=== PATIENT | male | born 1955 | race Caucasian/White ===

== ENCOUNTER → 2018-04-25 08:00 | Outpatient (CLI) | payer OTHER, MEDICAID, SELFPAY ==
--- NOTE | 2018-04-25 08:01 | DI.US.S_ITS ---
PROCEDURE: US ABDOMEN COMPLETE INDICATIONS: right lower quadrant abdominal pain TECHNIQUE: Real-time scanning was performed of the abdominal and retroperitoneal organs, with image documentation. COMPARISON: None. FINDINGS: Liver: Liver is normal in size and homogeneous in echotexture. Gallbladder: Gallbladder is clear with normal wall thickness. Biliary ducts: Intrahepatic bile ducts are non-dilated. Extrahepatic bile duct caliber measures 5 mm. Normal is 6-7 mm or less in diameter, or 10 mm or less post-cholecystectomy. Pancreas: Pancreas is obscured by bowel gas Spleen: Spleen is normal in size and homogeneous in echotexture. Kidneys: Kidneys are normal in size and echotexture. Right kidney measures 11.9 cm long; left kidney measures 12.3 cm long. No hydronephrosis or nephrolithiasis. No solid masses. Aorta: Visualized aorta is normal in caliber at less than 3 cm. Iliacs: Proximal common iliac arteries are normal in caliber at less than 2.5 cm. IVC: Intrahepatic inferior vena cava is patent. Miscellaneous: No free abdominal fluid. Imaging over the lower quadrants show no sonographic abnormality. IMPRESSION: 1. Pancreas is obscured by bowel gas and cannot be evaluated. 2. Otherwise normal abdominal ultrasound, no etiology of right lower quadrant pain seen. Possibility of appendicitis is not excluded by this exam. Dictated by: Kevin Hair M.D. on 04/25/2018 at 10:32 Approved by: Kevin Hair M.D. on 04/25/2018 at 10:34
== END ==
PROVIDERS: Family Provider Family Medicine; PCP Family Medicine; Visit Provider Family Medicine
DX: R10.31 Right lower quadrant pain (principal)
CPT/HCPCS: 76700

== ENCOUNTER 2018-06-06 13:16 | Day surgery (SDC) | payer OTHER, MEDICAID, SELFPAY ==
--- NOTE | 2018-06-06 | PATH_ITS ---
[facility] Accession Number: [id number] . 01 Material submitted: . PART A: COLON POLYPS AT 60CM PART B: SIGMOID POLYP AT 25CM . 02 Diagnosis: A. Colon Polyp at 60 cm: Colonic mucosa with no diagnostic abnormality, consistent with polypoid redundancy. Negative for serrated lesion, dysplasia or malignancy. Additional step sections examined. . B. Sigmoid Colon Polyp at 25 cm: Granulation tissue, consistent with inflammatory polyp. Negative for dysplasia or malignancy. MRV/06/11/2018 . 02 Electronically signed: . Reji Mobley MD, PhD, Pathologist NPI- [id number] . 01 Gross description: . Part A: COLON POLYPS AT 60CM: Received in formalin is 1 fragment(s) of wells, soft tissue measuring 0.4 x 0.2 x 0.2 cm submitted entirely in 1 cassette(s) Part B: SIGMOID POLYP AT 25CM: Received in formalin are multiple fragment(s) of wells, soft tissue measuring 0.7 x 0.5 x 0.2 cm in aggregate submitted entirely in 1 cassette(s) /CKI /CKI . 02 Pathologist provided ICD-10: K63.5, K51.40 . 02 CPT . 535759, 278288 Specimen Comment: A duplicate report has been generated due to demographic updates. Performed at: 01 [facility] [address] [facility], [place], [place] [id number] MD Federico Zapien MD Phone: [phone] Performed at: 02 [facility] [address] [place], [place] [id number] MD Kenny Corona MD Phone: [phone]
[2018-06-06 13:40] VITALS: BMI 23.6
[2018-06-06 13:48] VITALS: BP 144/87; PULSE 71; RESP 16; TEMP 36.8; O2SAT 99
[2018-06-06] MEDS: SODIUM CHLORIDE 0.9% 1,000 ML 21 ML IV (13:53)
--- NOTE | 2018-06-06 14:21 | PM.HP.1 ---
History of Present Illness Date Patient Seen: 06/06/18 Time Patient Seen: 14:22 Chief complaint: colonoscopy 47902 Narrative: 62-year-old male who presents for colorectal screening. It has been 11 years since his last colonoscopy. On further history today denies any recent gastrointestinal symptoms. No nausea, vomiting, loss of appetite, unexplained weight loss, recent abdominal pain, change in bowel habits, diarrhea, constipation, melena, hematochezia, or bright red blood per rectum. Patient History Medical History No significant past medical history (Acute) No significant past surgical history (Acute) Surgical History History of colonoscopy (Acute) Family & Social History Family History: Reviewed 06/06/18 by Isaac Mejia MD Social History: household members significant other lives independently Yes Tobacco & Substance use: Smoking Status Never smoker alcohol intake current Meds Home Medications Medication Instructions Recorded Confirmed Type [BACK BRACE] #1 ea 04/03/18 Rx acetaminophen [Tylenol] 325 mg PO Q4-6H PRN 06/06/18 06/06/18 History Allergies Allergy/AdvReac Type Severity Reaction Status Date / Time No Known Drug Allergies Allergy Verified 06/06/18 13:37 Review of Systems Review of Systems All systems reviewed & are unremarkable except as noted in HPI and below Exam Vital Signs (past 8 hours): - 06/06/18 13:48 Temperature 98.2 F Pulse Rate 71 Respiratory Rate 16 Blood Pressure 144/87 H Pulse Oximetry 99 Oxygen Delivery Method Room Air Narrative Exam Narrative: Well-nourished well-developed male in no acute distress. Alert oriented x3 Sclera nonicteric Regular rate and rhythm. Abdomen soft, nondistended, nontender Extremities show no clubbing, cyanosis, or edema Objective Labs Labs: No recent studies for review Assessment & Plan Plan: Assessment/Plan Narrative: 62-year-old male requiring colorectal screening by both age criteria and since it has been 11 years from his prior examination. Colonoscopy is currently recommended. Technical details of the procedure were discussed. Risks, benefits, alternatives were explained. Risks including but not limited to sedation, aspiration, bleeding, pain, missed lesion, incomplete examination, need for further radiographic studies, colonic perforation, need for major abdominal surgery, and all attendant risks of major surgery were explained in detail. All questions were answered to his satisfaction, and he voiced understanding. Consent was placed on the chart. We will proceed as above.
--- NOTE | 2018-06-06 14:27 | P.HP_ITS ---
History of Present Illness Date Patient Seen: 06/06/18 Time Patient Seen: 14:22 Chief complaint: colonoscopy 31199 Narrative: 62-year-old male who presents for colorectal screening. It has been 11 years since his last colonoscopy. On further history today denies any recent gastrointestinal symptoms. No nausea, vomiting, loss of appetite, unexplained weight loss, recent abdominal pain, change in bowel habits, diarrhea , constipation, melena, hematochezia, or bright red blood per rectum. Patient History Medical History No significant past medical history (Acute) No significant past surgical history (Acute) Surgical History History of colonoscopy (Acute) Family & Social History Family History: Reviewed 06/06/18 by Isaac Mejia MD Social History: household members significant other lives independently Yes Tobacco & Substance use: Smoking Status Never smoker alcohol intake current Meds Home Medications Medication Instructions Recorded Confirmed Type [BACK BRACE] #1 ea 04/03/18 Rx acetaminophen [Tylenol] 325 mg PO Q4-6H PRN 06/06/18 06/06/18 History Allergies Allergy/AdvReac Type Severity Reaction Status Date / Time No Known Drug Allergies Allergy Verified 06/06/18 13:37 Review of Systems Review of Systems All systems reviewed & are unremarkable except as noted in HPI and below Exam Vital Signs (past 8 hours): - 06/06/18 13:48 Temperature 98.2 F Pulse Rate 71 Respiratory Rate 16 Blood Pressure 144/87 H Pulse Oximetry 99 Oxygen Delivery Method Room Air Narrative Exam Narrative: Well-nourished well-developed male in no acute distress. Alert oriented x3 Sclera nonicteric Regular rate and rhythm. Abdomen soft, nondistended, nontender Extremities show no clubbing, cyanosis, or edema Objective Labs Labs: No recent studies for review Assessment & Plan Plan: Assessment/Plan Narrative: 62-year-old male requiring colorectal screening by both age criteria and since it has been 11 years from his prior examination. Colonoscopy is currently recommended. Technical details of the procedure were discussed. Risks, benefits, alternatives were explained. Risks including but not limited to sedation, aspiration, bleeding, pain, missed lesion, incomplete examination, need for further radiographic studies, colonic perforation, need for major abdominal surgery, and all attendant risks of major surgery were explained in detail. All questions were answered to his satisfaction, and he voiced understanding. Consent was placed on the chart. We will proceed as above.
--- NOTE | 2018-06-06 14:27 | PM.PREOP ---
Pre-operative Note Interval Note Pre-op Check: Yes History & Physical Reviewed by Physician, Yes Exam Performed and Yes History & Physical exam performed today by Physician Changes: No H&P completed within 30 days and has changed as indicated here:: 62-year-old male seen and examined today. He requires colorectal screening. Colonoscopy is recommended. History physical examination documented and placed on the chart today. Proceed as above. ASA Class (for procedural sedation): I
[2018-06-06] MEDS: MIDAZOLAM 5 MG/5 ML VIAL IV (14:52)
[2018-06-06] MEDS: fentaNYL 250 MCG/5 ML INJ IV (14:53)
--- NOTE | 2018-06-06 14:56 | PM.OP.ENDO ---
Operative Date/Time/Diagnoses Date of procedure: 06/06/18 Time of procedure: 14:56 Pre-op diagnosis: Colorectal screening Post-op diagnosis: other (Diverticulosis and colon polyps) Procedure & Clinicians Study performed: 1. Sedation per surgeon 2. Colonoscopy with cold forceps polypectomies Same procedure as scheduled: Yes Indications: 62-year-old male who presented for colorectal screening. It has been 11 years since his last endoscopy. Colonoscopy is currently recommended. Surgeon: Isaac Mejia Procedure Notes SCOAP/Timeout: Yes Procedure in detail: After obtaining informed consent, the patient was brought to the GI suite and placed in the left lateral decubitus position on the examination table. After placement of appropriate monitors, the patient was given incremental doses of Versed and Fentanyl until an appropriate level of sedation was achieved. A time out was held per SCOAP protocol. A digital rectal examination was performed and did not reveal any masses or obstructing lesions. The colonoscope was gently passed into the patient's anus and the entire colon navigated to the level of the cecum with minimal difficulty. Terminal ileum was intubated and was noted to be grossly normal. Once in the cecum, the scope was withdrawn being sure to go before and beyond all mucosal folds and prominences and get an excellent examination. The findings are noted above. At the level of the rectal vault, the scope was retroflexed and the internal anal canal was examined. The scope was straightened and air aspirated from the colon. The instrument was removed from the patient's body and the procedure was concluded. The patient was allowed to awaken from sedation without difficulty and taken to the post-anesthesia care unit in good condition. Scope withdrawal time: 12:54 min Sedation minutes: 26 Findings: diverticulosis and polyp Specimen(s): other (1. Transverse colon polyp at 60 cm 2. Sigmoid colon polyp at 25 cm) Complications: none Recommendations: Colonscopy in 5 years, High fiber diet and Will call with biopsy results Plan for aftercare: 1. Discharge to home Follow up: as needed Disposition: PACU
[2018-06-06 15:00] VITALS: BP 141/85; PULSE 88; RESP 12; TEMP 36.6; O2SAT 96
== END 2018-06-06 15:20 | disposition home or self-care (01) ==
PROVIDERS: PCP Family Medicine; Visit Provider Surgery
PROC: 0DJD8ZZ Inspection of Lower Intestinal Tract, Via Natural or Artificial Opening Endoscopic (ICD-10-PCS; CPT 45378; principal; 2018-06-06 15:00)
DX: Z12.11 Encounter for screening for malignant neoplasm of colon (principal); K57.30 Diverticulosis of large intestine without perforation or abscess without bleeding; K63.5 Polyp of colon; K51.40 Inflammatory polyps of colon without complications
CPT/HCPCS: 45380; 88305; 99152; 99153; J2250; J3010

== ENCOUNTER 2019-02-09 15:01 | Emergency (ER) | payer MEDICARE, OTHER, SELFPAY ==
[2019-02-09 15:08] VITALS: BP 169/94; PULSE 77; RESP 16; TEMP 36.9; O2SAT 96; BMI 24.3
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
[2019-02-09 15:18] VITALS: PULSE 74
--- NOTE | 2019-02-09 15:22 | DI.RAD.S_ITS ---
PROCEDURE: XR ANKLE LT MIN 3V INDICATIONS: pain TECHNIQUE: 3 views of the ankle were acquired. COMPARISON: None. FINDINGS: Bones: No fractures or dislocations. Ankle mortise is normally aligned. No suspicious bony lesions. Incidental note is made of an accessory ossicle, an os trigonum. A plantar calcaneal spur is seen. Mild degenerative changes are seen. The talar dome demonstrates no paul abnormality. Soft tissues: No tibiotalar joint effusion. Achilles tendon appears normal. IMPRESSION: Normal plain film study for age. Dictated by: Marcial Virgen M.D. on 02/09/2019 at 14:46 Approved by: Marcial Virgen M.D. on 02/09/2019 at 14:47
--- NOTE | 2019-02-09 15:22 | DI.US.S_ITS ---
PROCEDURE: US PERIPH VENOUS LOW EXTREM LT INDICATIONS: PAIN TECHNIQUE: Real-time imaging, as well as color and pulse Doppler interrogation, were performed of the lower extremity deep veins from the inguinal ligament to the popliteal fossa. COMPARISON: None. FINDINGS: The common femoral, femoral and popliteal veins are normally compressible, and free of intraluminal thrombus. Color and pulse Doppler demonstrate normal phasic intraluminal flow. There is normal augmentation response to distal compression maneuver. IMPRESSION: Negative for deep venous thrombosis. Dictated by: Marcial Virgen M.D. on 02/09/2019 at 15:18 Approved by: Marcial Virgen M.D. on 02/09/2019 at 15:19
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
[2019-02-09 16:09] VITALS: BP 160/90; PULSE 84; RESP 18; O2SAT 96
== END 2019-02-09 16:47 | disposition home or self-care (01) ==
PROVIDERS: Emergency Provider Internal Medicine; PCP Family Medicine
DX: M79.605 Pain in left leg (principal)
CPT/HCPCS: 73610; 93971; 99282; 99283

== ENCOUNTER → 2019-02-18 17:46 | Outpatient (CLI) | payer MEDICARE, OTHER, SELFPAY ==
--- NOTE | 2019-02-18 17:52 | DI.MRI.S_ITS ---
PROCEDURE: MR HIP LT WO CON INDICATIONS: R/O any foreign body in area causing pain, vs.osteoarthritis TECHNIQUE: Noncontrast coronal T1 spin echo and STIR through the bony pelvis. Coronal and axial T2 fast spin echo with fat saturation, sagittal T1 spin echo, and oblique axial T2 fast spin echo with fat saturation through the hip. COMPARISON: None. FINDINGS: Image quality: Excellent. Bones and joints: Symmetric appearing bilateral hip joint osteoarthritic changes are seen with superior joint space narrowing, and subchondral sclerosis. No fracture or dislocation. No intraosseous lesions or fractures. No avascular necrosis of the femoral heads. The visualized lower lumbar spine appears normally aligned. Tendons and ligaments: The gluteus medius and minimus tendons appear intact, without associated muscle atrophy. The nearby proximal iliotibial band also appears intact. The iliopsoas tendon appears intact, without adjacent bursal fluid collections or evidence for impingement syndrome. The origin of the hamstring tendon is intact at the ischial tuberosity, as well as the associated sacrotuberous ligament. The straight and reflected heads of the rectus femoris muscle origin appear intact, as well as the conjoint tendon. The ligamentum teres appears intact where visualized. Labrum and cartilage: Any absence of intra-articular contrast, there is suggestion of superior left hip labral tear. Cartilage surface of the femoral head appears of normal thickness. The alpha angle of the femur is within normal limits at less than 55 degrees. Soft tissues: Visualized muscles demonstrate normal bulk and internal signal. Quadratus femoris muscle demonstrates no internal edema to suggest ischiofemoral impingement. The proximal sciatic neurovascular bundle appears normal adjacent to the hamstring tendons. No free pelvic fluid. Bladder wall thickness is normal. Genitourinary structures and bowel loops appear normal where visualized. IMPRESSION: 1. No fracture or dislocation. No evidence of avascular necrosis. Mild symmetric appearing bilateral hip joint osteophytic changes. 2. Finding is concerning for focal superior left hip labral tear. 3. No gross foreign body is seen. No gross muscle or tendon signal abnormality. Dictated by: Silvano Rascon M.D. on 02/19/2019 at 8:56 Approved by: Silvano Rascon M.D. on 02/19/2019 at 8:59
== END ==
PROVIDERS: Family Provider Family Medicine; PCP Family Medicine; Visit Provider Nurse Practitioner
DX: M79.605 Pain in left leg (principal); M16.0 Bilateral primary osteoarthritis of hip; M25.551 Pain in right hip; G89.29 Other chronic pain
CPT/HCPCS: 73721

== ENCOUNTER → 2021-01-06 08:34 | Outpatient (CLI) | payer MEDICARE, OTHER, SELFPAY ==
[2021-01-06] MEDS: COVID-19 VACC #1, MRNA(MOD) 100 MCG/0.5 ML VIAL IM (08:45)
== END ==
PROVIDERS: Family Provider Family Medicine; PCP Family Medicine; Visit Provider Internal Medicine
DX: Z23 Encounter for immunization (principal)
CPT/HCPCS: 0011A; 91301

== ENCOUNTER → 2021-02-11 08:37 | Outpatient (CLI) | payer MEDICARE, SELFPAY ==
[2021-02-11] MEDS: COVID-19 VACC #2, MRNA(MOD) 100 MCG/0.5 ML VIAL IM (08:42)
== END ==
PROVIDERS: Family Provider Family Medicine; PCP Family Medicine; Visit Provider Internal Medicine
DX: Z23 Encounter for immunization (principal)
CPT/HCPCS: 0012A; 91301

== ENCOUNTER → 2021-03-12 10:02 | Outpatient (CLI) | payer MEDICARE, OTHER, SELFPAY ==
--- NOTE | 2021-03-12 10:04 | DI.MRI.S_ITS ---
PROCEDURE: MR LUMBAR SPINE WO CON INDICATIONS: leg pain,foot pain, radiculopathy TECHNIQUE: Noncontrast sagittal T1 spin echo and T2 fast echo, sagittal STIR, axial T1 and T2 fast spin echo through the lumbar spine. In cases with scoliosis, additional coronal T2 fast spin echo may be performed. COMPARISON: None. FINDINGS: Image quality: Degraded by patient motion artifact. Alignment and Curvature: There is trace L2-L3 and L3-L4 retrolisthesis. Bone Marrow: Marrow is of normal overall signal. No acute vertebral body compression fractures. Spinal Cord: Conus medullaris terminates at the L1 level. Visualized cord demonstrates normal signal and size. Paraspinous Soft Tissues: No paravertebral masses. T12-L1: Normal appearance. L1-L2: Normal appearance. L2-L3: Loss of disc signal and slight loss of disc height. Mild to moderate diffuse disc bulge. Mild narrowing of the central canal. Mild to moderate right and moderate left neural foraminal narrowing. Small left foraminal disc protrusion abuts and slightly compresses the exiting left L2 nerve root. Fissure noted in the posterior annulus. L3-L4: Loss of disc signal. Mild, diffuse disc bulge. Small right central disc protrusion. Mild narrowing of the central canal. Mild to moderate bilateral neural foraminal narrowing. No neural compression. L4-L5: Loss of disc signal. Mild, diffuse disc bulge. Mild bilateral facet hypertrophy. Mild narrowing of the central canal. Mild to moderate bilateral neural foraminal narrowing. No neural compression. L5-S1: Loss of disc signal. Mild, diffuse disc bulge. Mild bilateral facet hypertrophy. No central stenosis. Mild bilateral neural foraminal narrowing. No neural compression. Fissure noted in the posterior annulus. IMPRESSION: 1. Multilevel degenerative disease. 2. Multilevel facet arthropathy. 3. No severe central canal narrowing. 4. No severe neural foraminal narrowing. 5. Small L2-L3 left foraminal disc protrusion which abuts and slightly compresses the exiting left L2 nerve root. Please correlate with clinical data. 6. L2-L3 and L5-S1 disc annulus fissures. Dictated by: Kaitlin Mims MD, PhD on 03/14/2021 at 10:52 Approved by: Kaitlin Mims MD, PhD on 03/14/2021 at 10:56
== END ==
PROVIDERS: Family Provider Family Medicine; PCP Family Medicine; Referring Provider Family Medicine; Visit Provider Family Medicine
DX: M51.16 Intervertebral disc disorders with radiculopathy, lumbar region (principal); M51.17 Intervertebral disc disorders with radiculopathy, lumbosacral region; M47.26 Other spondylosis with radiculopathy, lumbar region; M47.27 Other spondylosis with radiculopathy, lumbosacral region; M25.551 Pain in right hip; M54.5 Low back pain; M79.606 Pain in leg, unspecified; M79.673 Pain in unspecified foot; G89.29 Other chronic pain
CPT/HCPCS: 72148

== ENCOUNTER 2023-02-26 12:16 | Emergency (ER) | payer MEDICARE, OTHER, SELFPAY ==
[2023-02-26] VITALS (8 sets, daily range): BP systolic 145–219; BP diastolic 82–108; PULSE 61–80; RESP 10–30; TEMP 36.9; O2SAT 95–99; BMI 25.5
--- NOTE | 2023-02-26 12:23 | DI.RAD.S_ITS ---
PROCEDURE: XR CHEST 1V INDICATIONS: chest pain TECHNIQUE: One view of the chest was acquired. COMPARISON: None. FINDINGS: Surgical changes and devices: None. Lungs and pleura: Lungs are clear. No pleural effusions or pneumothorax. Mediastinum: Mediastinal contours appear normal. Heart size is normal. Bones and chest wall: No suspicious bony lesions. Overlying soft tissues appear unremarkable. IMPRESSION: No evidence acute pulmonary process. Dictated by: Iker Wise M.D. on 02/26/2023 at 13:06 Approved by: Iker Wise M.D. on 02/26/2023 at 13:06
--- NOTE | 2023-02-26 12:40 | ED.CHESTPAIN ---
HPI - Chest Pain General Chief Complaint: Chest Pain Stated Complaint: SOB/chest pains Time Seen by Provider: 02/26/23 12:24 Source: patient and family Mode of arrival: Ambulatory Limitations: no limitations History of Present Illness HPI narrative: Patient is a 67-year-old male. No prior diagnosed medical problems. Is here for evaluation of at least 1 month if not 1.5 months of intermittent chest discomfort. He states that it has become more pronounced over the past 2 weeks. They are getting ready for a garage sale he has been doing quite a bit of lifting and moving around. He states that he occasionally gets chest discomfort that is not worse with palpation or movement or breathing. It does seem to get somewhat better when he stops moving around. It does not happen every time that he exerts himself. He contacted his primary doctor's office who advised that he come to the emergency department. He is no prior cardiac history. Has had no prior risk stratification. He currently is asymptomatic. Related Data Home Medications Medication Instructions Recorded Confirmed biotin 1 mg capsule 1 mg PO DAILY 01/17/19 03/01/21 cholecalciferol (vitamin D3) 25 1,000 unit PO DAILY 01/17/19 03/01/21 mcg (1,000 unit) capsule vitamin B complex (B 1 tab PO DAILY 01/17/19 03/01/21 Complex-Vitamin B12 tablet) Allergies Allergy/AdvReac Type Severity Reaction Status Date / Time No Known Drug Allergies Allergy Verified 02/26/23 12:28 Review of Systems Review of Systems ROS Unobtainable: All systems reviewed & are unremarkable except as noted in HPI and below Patient History Medical History No significant past medical history Surgical History (Updated 03/23/22 @ 12:58 by Jacqueline Cheung) Anesthesia History of colonoscopy Mucous cyst of toe No significant past surgical history Family History (Updated 03/23/22 @ 12:59 by Jacqueline Cheung) Father Myocardial infarct Mother Cancer Social History marital status: unmarried,living together household members: significant other lives independently: Yes housing: other occupational status: previously employed Smoking Status: Never smoker second hand exposure: No alcohol intake: current substance use type: does not use Smoking Status: Never smoker alcohol intake frequency: 3 or more drinks per day Alcohol type: beer Substance Use Type: does not use Exam Initial Vital Signs Initial Vital Signs: Vital Signs Temperature 98.5 F 02/26/23 12:18 Pulse Rate 80 02/26/23 12:18 Respiratory Rate 16 02/26/23 12:18 Blood Pressure 219/108 H 02/26/23 12:18 Pulse Oximetry 99 02/26/23 12:18 Oxygen Delivery Method Room Air 02/26/23 12:18 Const General: cooperative, comfortable and No ill appearing HENMT Head: normal to inspection and normocephalic Resp Effort & Inspection: normal respiratory effort Auscultation: clear to auscultation bilaterally Cardio Rate: regular rate Rhythm: regular rhythm GI Inspection: normal to inspection and non-distended Palpation: soft and No tender Skin General: no rashes or lesions noted Neuro General: patient alert, patient awake, patient oriented x3 and moves all extremities Extrem General: normal to inspection and capillary refill normal Scores HEART Score Heart Score history: Slightly Suspicious Heart Score EKG: Normal Heart Score Age: > or = 65 years old Heart Score risk factors: 1-2 risk factors Heart Score troponin: < or = to normal limit Heart Score Total: 3 Course Orders Ordered: ED Orders 02/26/23 12:23 XR chest 1V Stat EKG-12 Lead Stat 02/26/23 12:30 BNP [NT-proBNP (BNP-Adult 18+)] Stat Complete Blood Count AUTO DIFF Stat Comprehensive Metabolic Panel Stat Lipase Stat Magnesium Stat PTT Partial Thromboplastin Adan Stat Prothrombin Time INR Stat Troponin & CK Cardiac Panel Stat 02/26/23 13:28 Urine Microscopic Stat Discontinued Medications Aspirin (Aspirin 81 Mg Chew Tab) 324 mg PO NOW ONE Stop: 02/26/23 12:24 Last Admin: 02/26/23 12:41 Dose: 324 mg Documented By: ST Vital Signs Vital signs: Vital Signs - 8 hr 02/26/23 12:18 02/26/23 12:21 02/26/23 12:23 Temperature 98.5 F Pulse Rate 80 75 74 Respiratory Rate 16 30 H 19 Blood Pressure 219/108 H Pulse Oximetry 99 99 Oxygen Delivery Method Room Air 02/26/23 12:23 02/26/23 12:26 02/26/23 12:26 Temperature Pulse Rate 70 Respiratory Rate 20 Blood Pressure 219/108 H 185/100 H Pulse Oximetry 99 Oxygen Delivery Method 02/26/23 12:30 02/26/23 12:30 02/26/23 13:00 Temperature Pulse Rate 68 Respiratory Rate 18 Blood Pressure 181/90 H 157/90 H Pulse Oximetry 99 Oxygen Delivery Method 02/26/23 13:00 Temperature Pulse Rate 64 Respiratory Rate 19 Blood Pressure Pulse Oximetry 95 Oxygen Delivery Method Room Air MDM - Chest Pain Lab Data Attestation: I reviewed the patient's lab results. 02/26/23 12:30 02/26/23 12:30 Labs: Lab Results 02/26/23 02/26/23 02/26/23 Range/Units 12:30 12:30 12:30 WBC 7.1 (4.5-11.0) X10^3/uL RBC 5.01 (4.5-5.9) X10^6/uL Hgb 16.3 (13.5-17.5) g/dL Hct 44.9 (41-53) % MCV 89.6 (80-100) fL MCH 32.6 (26-34) PG MCHC 36.4 H (30-36) % RDW 12.1 (11.6-14.8) % Plt Count 213 (150-400) X10^3/uL Neut % (Auto) 65.7 (50-75) % Lymph % (Auto) 22.6 L (25-40) % Fleming % (Auto) 6.1 (3-14) % Eos % (Auto) 4.9 H (2-4) % Baso % (Auto) 0.7 (0-2) % Neut # (Auto) 4700 (2054-9195) /uL Lymph # (Auto) 1600 (0821-5249) /uL Fleming # (Auto) 400 (0-900) /uL Eos # (Auto) 300 (0-450) /uL Baso # (Auto) 0 (0-100) /uL PT 10.6 (10.1-12.7) SECONDS INR 0.9 (0.9-1.3) APTT 34 (26-36) SECONDS Sodium 136 L (137-145) mmol/L Potassium 4.3 (3.4-5.1) mmol/L Chloride 99 (98-107) mmol/L Carbon Dioxide 29 (22-32) mmol/L BUN 13 (9-20) mg/dL Creatinine 0.98 (0.66-1.25) mg/dL Estimated GFR > 60 (>60) mL/min BUN/Creatinine Ratio 13.3 (6-22) Glucose 105 (80-110) mg/dL Calcium 9.2 (8.4-10.2) mg/dL Magnesium 1.9 (1.6-2.3) mg/dL Total Bilirubin 1.3 (0.2-1.3) mg/dL AST 29 (17-59) IU/L ALT 32 (<50) IU/L Alkaline Phosphatase 62 (38-126) U/L Total Creatine Kinase 71 (55-170) U/L CK-MB (CK-2) TNP CK-MB (CK-2) Rel Index TNP Troponin I < 0.012 (0.01-0.034) ng/mL NT-Pro-B Natriuret Pep 25 (<125) pg/mL Total Protein 7.7 (6.3-8.2) g/dL Albumin 4.5 (3.5-5.0) g/dL Globulin 3.2 (1.7-4.1) g/dL Albumin/Globulin Ratio 1.4 (1.0-2.8) Lipase 91 (23-300) U/L Urine RBC (0-5/HPF) Urine WBC (0-5/HPF) Ur Squamous Epith Cells (0-5/HPF) Urine Bacteria (None) Ur Culture Indicated? 02/26/23 Range/Units 13:28 WBC (4.5-11.0) X10^3/uL RBC (4.5-5.9) X10^6/uL Hgb (13.5-17.5) g/dL Hct (41-53) % MCV (80-100) fL MCH (26-34) PG MCHC (30-36) % RDW (11.6-14.8) % Plt Count (150-400) X10^3/uL Neut % (Auto) (50-75) % Lymph % (Auto) (25-40) % Fleming % (Auto) (3-14) % Eos % (Auto) (2-4) % Baso % (Auto) (0-2) % Neut # (Auto) (3138-9740) /uL Lymph # (Auto) (2817-2785) /uL Fleming # (Auto) (0-900) /uL Eos # (Auto) (0-450) /uL Baso # (Auto) (0-100) /uL PT (10.1-12.7) SECONDS INR (0.9-1.3) APTT (26-36) SECONDS Sodium (137-145) mmol/L Potassium (3.4-5.1) mmol/L Chloride (98-107) mmol/L Carbon Dioxide (22-32) mmol/L BUN (9-20) mg/dL Creatinine (0.66-1.25) mg/dL Estimated GFR (>60) mL/min BUN/Creatinine Ratio (6-22) Glucose (80-110) mg/dL Calcium (8.4-10.2) mg/dL Magnesium (1.6-2.3) mg/dL Total Bilirubin (0.2-1.3) mg/dL AST (17-59) IU/L ALT (<50) IU/L Alkaline Phosphatase (38-126) U/L Total Creatine Kinase (55-170) U/L CK-MB (CK-2) CK-MB (CK-2) Rel Index Troponin I (0.01-0.034) ng/mL NT-Pro-B Natriuret Pep (<125) pg/mL Total Protein (6.3-8.2) g/dL Albumin (3.5-5.0) g/dL Globulin (1.7-4.1) g/dL Albumin/Globulin Ratio (1.0-2.8) Lipase (23-300) U/L Urine RBC 0-1/hpf (0-5/HPF) Urine WBC 0-1/hpf (0-5/HPF) Ur Squamous Epith Cells 0-1 /hpf (0-5/HPF) Urine Bacteria Occasional (0-1) (None) Ur Culture Indicated? Cult not indicated Urine Dip Bedside Urine Glucose Negative Bedside Urine Bilirubin - Negative Bedside Urine Ketone - Negative Urine Specific [place] 1.005 Bedside Urine Occult Blood +/- Bedside Urine pH 6.0 Bedside Urine Protein - Negative Bedside Urine Urobilinogen - Negative Bedside Urine Nitrite - Negative Bedside Urine Leukocytes - Negative Esterase Imaging Data Chest x-ray: Radiologist's Impression: PROCEDURE:? XR CHEST 1V ? INDICATIONS:? chest pain ? TECHNIQUE:? One view of the chest was acquired.? ? COMPARISON:? None. ? FINDINGS:? ? Surgical changes and devices:? None.? ? Lungs and pleura:? Lungs are clear.? No pleural effusions or pneumothorax.? ? Mediastinum:? Mediastinal contours appear normal.? Heart size is normal.? ? Bones and chest wall:? No suspicious bony lesions.? Overlying soft tissues appear unremarkable.? ? IMPRESSION:? No evidence acute pulmonary process. ECG Data Attestation: I personally reviewed and interpreted this ECG as follows: Interpretation: Sinus rhythm Ventricular rate is 69 Normal axis Normal QRS Normal QTC LVH No ST T wave changes MDM Narrative Medical decision making narrative: Patient has a low risk heart score. EKG is unremarkable. Troponin is negative. Has been asymptomatic since being here in the ER. He was hypertensive during his initial blood pressure however this improved without specific intervention. Patient has never had risk stratification testing. I recommended that he contact his primary doctor for follow-up to discuss the indications for stress test. Will discharge patient home. He was given return precautions and follow-up instructions. He expressed understanding and agreement with plan. Discharge Plan Departure Patient Disposition: Home Clinical Impression: Atypical chest pain Instructions: DI for Atypical Chest Pain Activity Restrictions/Additional Instructions: I do recommend that you contact your primary doctor for follow-up to discuss the indications for a stress test. Return to the emergency department for new or worsening symptoms. Prescriptions: No Action vitamin B complex [B Complex-Vitamin B12] tablet 1 tab PO DAILY cholecalciferol (vitamin D3) 1,000 unit capsule 1,000 unit PO DAILY biotin 1 mg capsule 1 mg PO DAILY Referrals: Melania Interiano MD [Primary Care Provider] - Stand Alone Forms: Patient Portal/API
[2023-02-26] MEDS: ASPIRIN 81 MG CHEW TAB 324 MG PO (12:41)
[2023-02-26 12:44] LABS: Add Manual Diff / Slide Review NO; Basophils Absolute Auto 0 /uL (0-100); Basophils Percent Auto 0.7 % (0-2); Eosinophils Absolute Auto 300 /uL (0-450); Eosinophils Percent Auto 4.9 % (2-4); Hematocrit 44.9 % (41-53); Hemoglobin 16.3 g/dL (13.5-17.5); Lymphocytes Absolute Auto 1600 /uL (1100-4500); Lymphocytes Percent Auto 22.6 % (25-40); Mean Corpuscular HGB Conc 36.4 % (30-36); Mean Corpuscular Hemoglobin 32.6 PG (26-34); Mean Corpuscular Volume 89.6 fL (80-100); Monocytes Absolute Auto 400 /uL (0-900); Monocytes Percent Auto 6.1 % (3-14); Neutrophils Absolute Auto 4700 /uL (1500-7000); Neutrophils Percent Auto 65.7 % (50-75); Platelet Count 213 X10^3/uL (150-400); Red Blood Cell Count 5.01 X10^6/uL (4.5-5.9); Red Cell Distribution Width 12.1 % (11.6-14.8); White Blood Cell Count 7.1 X10^3/uL (4.5-11.0)
[2023-02-26 12:58] LABS: INR 0.9 (0.9-1.3); Prothrombin Time 10.6 SECONDS (10.1-12.7)
[2023-02-26 13:01] LABS: PTT Partial Thromboplastin Tim 34 SECONDS (26-36)
[2023-02-26 13:03] LABS: Alanine Aminotransferase 32 IU/L (<50); Albumin 4.5 g/dL (3.5-5.0); Albumin Globulin Ratio 1.4 (1.0-2.8); Alkaline Phosphatase 62 U/L (38-126); Aspartate Aminotransferase 29 IU/L (17-59); BUN Creatinine Ratio 13.3 (6-22); Bilirubin Total 1.3 mg/dL (0.2-1.3); Blood Urea Nitrogen 13 mg/dL (9-20); Calcium 9.2 mg/dL (8.4-10.2); Carbon Dioxide 29 mmol/L (22-32); Chloride 99 mmol/L (98-107); Creatine Kinase 71 U/L (55-170); Estimated Glomerular Filt Rate > 60 mL/min (>60); Globulin 3.2 g/dL (1.7-4.1); Glucose 105 mg/dL (80-110); HEMOLYSIS 17 (0-50); Lipase 91 U/L (23-300); Magnesium 1.9 mg/dL (1.6-2.3); Potassium 4.3 mmol/L (3.4-5.1); Sodium 136 mmol/L (137-145); Total Protein 7.7 g/dL (6.3-8.2)
[2023-02-26 13:14] LABS: NT-proBNP (BNP-Adult 18+) 25 pg/mL (<125); Troponin I < 0.012 ng/mL (0.01-0.034)
[2023-02-26 13:50] LABS: Bacteria Urine Occasional (0-1); Culture Indicated Urine Cult Not Indicated; RBC Urine 0-1/HPF (0-5/HPF); Squamous Epithelial Cell Urine 0-1 /HPF (0-5/HPF); WBC Urine 0-1/HPF (0-5/HPF)
== END 2023-02-26 14:35 | disposition home or self-care (01) ==
PROVIDERS: Emergency Provider Emergency Medicine; Family Provider Family Medicine; PCP Family Medicine
DX: R07.89 Other chest pain (principal)
CPT/HCPCS: 36415; 71045; 80053; 81003; 81015; 82550; 83690; 83735; 83880; 84484; 85025; 85610; 85730; 93005; 93010; 99284

== ENCOUNTER → 2023-03-12 10:23 | Outpatient (CLI) | payer MEDICARE, OTHER, SELFPAY ==
[2023-03-12 11:55] LABS: Cholesterol 204 mg/dL (140-199); HDL Cholesterol 79 mg/dL (40-60); LDL Cholesterol Calculated 113 mg/dL (<100); Triglycerides 59 mg/dL (35-150)
[2023-03-12 12:25] LABS: TSH w/ Reflex to FT4 1.23 uIU/mL (0.47-4.68)
[2023-03-12 14:44] LABS: Creatinine Urine Random 75.5 mg/dL
[2023-03-12 14:53] LABS: Microalbumin Urine Random < 0.6 mg/dL (0-1.6)
== END ==
PROVIDERS: Family Provider Family Medicine; PCP Family Medicine; Referring Provider Physician Assistant; Visit Provider Physician Assistant
DX: E78.5 Hyperlipidemia, unspecified (principal); Z01.83 Encounter for blood typing; G47.00 Insomnia, unspecified
CPT/HCPCS: 36415; 80061; 82043; 82570; 84443

== ENCOUNTER → 2023-04-02 07:36 | Outpatient (CLI) | payer MEDICARE, OTHER, SELFPAY ==
--- NOTE | 2023-04-04 11:06 | DI.NM.S_ITS ---
DATE OF SERVICE: 04/02/2023 PROCEDURE: Exercise treadmill stress test without imaging. ORDERING PROVIDER: Jo Grover PA-C. INDICATIONS: The patient is a 67-year-old male with a history of hypertension and recent ER evaluation for atypical chest pain. FINDINGS: 1. The patient was able to exercise for 4 minutes and 3 seconds on a standard Mike protocol suggesting moderate-severely reduced exercise capacity with an JOSE of +37%, achieving 7.0 METS. 2. He had a normal heart rate response to exercise, achieving a maximum heart rate of 130 bpm (86% of his predicted maximum). He had a hypertensive blood pressure response to exercise with a resting blood pressure 140/94 that increased to a maximum of 240/108. 3. He developed a dull chest discomfort concerning for angina at around 2 minutes of exercise. It increased in intensity with exercise to a maximum of 7/10 at peak exercise and resolved within 4 minutes of recovery. 4. His resting ECG shows sinus rhythm with normal ST segments. There are no significant ST-segment shifts with exercise. There are occasional PACs with stress, but no complex ectopy identified. IMPRESSION: 1. Normal exercise treadmill study for ischemia by ECG criteria. 2. Moderate-severely reduced exercise capacity with a hypertensive blood pressure response to exercise and inducement of escalating chest discomfort with stress, concerning for possible angina. If there is a high degree of clinical concern for ischemic heart disease, consider a stress imaging evaluation. 3. He had occasional PACs with stress, but no complex ectopy. Milton Jose - MOHAN/michelet/devan doc#: [id number]/job#: [id number] dd: 04/02/2023 16:51:00 dt: 04/03/2023 01:47:00 DICTATING MD/COPIES TO: Naveen Spring MD; Jo Grover, PAC COPIES MNE: JUDITH;
== END ==
PROVIDERS: Family Provider Family Medicine; PCP Family Medicine; Referring Provider Physician Assistant; Visit Provider Physician Assistant
DX: R07.89 Other chest pain (principal); E78.5 Hyperlipidemia, unspecified; I10 Essential (primary) hypertension
CPT/HCPCS: 93017

== ENCOUNTER 2023-04-14 17:46 | Emergency (ER) | payer MEDICARE, OTHER, SELFPAY ==
[2023-04-14 17:53] VITALS: BP 134/74; PULSE 69; RESP 18; TEMP 36.4; O2SAT 97; BMI 25.0
--- NOTE | 2023-04-14 18:03 | ED.HA ---
HPI - Headache General Chief Complaint: Headache Stated Complaint: Headache from procedure t-1 Time Seen by Provider: 04/14/23 18:03 Mode of arrival: Ambulatory History of Present Illness HPI Narrative: 67-year-old male nonsmoker presents with his with a chief complaint of mild, lingering headache since yesterday afternoon. He states that it started gradually over the course of the afternoon and has been present off and on, largely on ever since. At its worst it is a 3/10 and currently a 2/10. He denies any trauma or injury, no fever or neck pain, does not take blood thinners. Denies dizziness, weakness or lightheadedness. No blurred vision, trouble with speech, trouble walking, numbness, tingling or weakness of his extremities. He had what he reports as a clean heart catheterization yesterday and admits that he did not have any caffeine in the morning which is certainly not normal for him. Otherwise he denies any medication or dietary change. He denies any provocation, palliation or radiation. He states it is just ignoring and nature and most of his head. He states that when he rubs his temples he feels like he can feel a faint pulse. He routinely has headaches and states this is no different than his normal headaches, other than maybe lasting a bit longer. He has taken some Tylenol and Aleve with minimal to no relief Related Data Home Medications Medication Instructions Recorded Confirmed biotin 1 mg capsule 1 mg PO DAILY 01/17/19 03/27/23 cholecalciferol (vitamin D3) 25 1,000 unit PO DAILY 01/17/19 03/27/23 mcg (1,000 unit) capsule vitamin B complex (B 1 tab PO DAILY 01/17/19 03/27/23 Complex-Vitamin B12 tablet) zolpidem 5 mg tablet 2.5 mg PO BEDTIME PRN 03/01/23 03/27/23 Allergies Allergy/AdvReac Type Severity Reaction Status Date / Time No Known Drug Allergies Allergy Verified 04/14/23 17:53 Review of Systems Review of Systems Narrative: GENERAL: Denies chills, fatigue, malaise, fever, sweats. HEENT: Denies sinus pain, ear pain, sore throat, difficulty swallowing, dizziness. RESPIRATORY: Denies dyspnea, cough, wheezing, hemoptysis, sputum. CARDIOVASCULAR: Denies chest pain, palpitations, orthopnea, edema, GASTROINTESTINAL: Denies nausea, vomiting, abdominal pain, diarrhea, constipation, melena. : Denies dysuria, frequency, incontinence, hematuria, urinary retention. MUSCULOSKELETAL: denies weakness, joint pain, or bony pain SKIN: Denies rash, skin lesions, or other NEUROLOGIC: See HPI PSYCHIATRIC: No concerning psychosocial issues. 12 point review of systems is negative except for those stated above Patient History Medical History No significant past medical history Surgical History Anesthesia History of colonoscopy Mucous cyst of toe No significant past surgical history Family History Father Myocardial infarct Mother Cancer Social History marital status: unmarried,living together household members: significant other lives independently: Yes housing: other occupational status: previously employed Smoking Status: Never smoker second hand exposure: No alcohol intake: current substance use type: does not use Smoking Status: Never smoker alcohol intake frequency: 3 or more drinks per day Alcohol type: beer Substance Use Type: does not use Exam Narrative Exam Narrative: GENERAL: [67] year old patient appears stated age. Well-developed patient, in mild distress. HEAD: Atraumatic. Normocephalic. EYES: Pupils equal round and reactive. Extraocular motions intact. No scleral icterus. No injection or drainage. ENT: Nose without bleeding, purulent drainage. Throat without erythema, tonsillar hypertrophy or exudate. Airway patent. NECK: Trachea midline. Non tender CARDIOVASCULAR: Regular rate and rhythm without murmurs, gallops, or rubs. RESPIRATORY: Clear to auscultation. Breath sounds equal bilaterally. No wheezes, rales, or rhonchi. GASTROINTESTINAL: Abdomen soft, non-tender, nondistended. EXTREMITIES: No edema or joint tenderness. BACK: Nontender without deformity or crepitance. No flank tenderness. NEURO: AOx3. SKIN: No rash or erythema of visible areas NIH Stroke Scale 1a. LOC: Patient is alert and keenly responsive (0) 1b. LOC Questions: Patient answers both LOC questions accurately (0) 1c. LOC Commands: Patient performs both tasks correctly (0) 2. Best Gaze: Normal (0) 3. Visual: No visual loss (0) 4. Facial palsy: Normal symmetrical movements (0) 5. Motor arm: No drift (0) 6. Motor leg: No drift (0) 7. Limb ataxia: Absent (0) 8. Sensory: Normal (0) 9. Best language: No aphasia; normal (0) 10. Dysarthria: Normal (0) 11. Extinction and inattention: No abnormality (0) NIHSS: 0 Initial Vital Signs Initial Vital Signs: Vital Signs Temperature 97.6 F 04/14/23 17:53 Pulse Rate 69 04/14/23 17:53 Respiratory Rate 18 04/14/23 17:53 Blood Pressure 134/74 04/14/23 17:53 Pulse Oximetry 97 04/14/23 17:53 Oxygen Delivery Method Room Air 04/14/23 17:53 Course Orders Ordered: ED Orders 04/14/23 18:09 CT head/brain wo con Stat Complete Blood Count AUTO DIFF Stat Comprehensive Metabolic Panel Stat Sodium Chloride (Normal Saline 0.9%) 1,000 mls @ 1,000 mls/hr IV BOLUS ONE Stop: 04/14/23 19:09 Discontinued Medications Acetaminophen (Ofirmev) 1,000 mg in 100 mls @ 400 mls/hr IV NOW ONE Stop: 04/14/23 18:24 Vital Signs Vital signs: Vital Signs - 8 hr 04/14/23 17:53 Temperature 97.6 F Pulse Rate 69 Respiratory Rate 18 Blood Pressure 134/74 Pulse Oximetry 97 Oxygen Delivery Method Room Air MDM - Headache MDM Narrative Medical decision making narrative: CC: 67M with headache Headache considerations include, but not limited to: Subarachnoid hemorrhage, but unlikely as patient denies sudden onset of pain, not worst of life, or neck pain Meningitis considered, but thought unlikely given lack of Brudzinski's, Kernig's sign, altered mental status or fever Giant cell arteritis considered, but thought unlikely given lack of unilateral findings, pain in pentecostalism, vision change HTN Emergency considered, but thought unlikely given normal vitals Other serious diagnoses considered unlikely given lack of red flag findings such as sudden onset, increasing frequency, immunocompromise, systemic signs (fever, chills, stiff neck, or rash), focal neurologic findings, trauma, blood thinners, etc. Data collected from: Patient Medical records reviewed: Prior notes reviewed in our EMR Differential considered, but not limited to: caffeine headache, SAH, HTN PERRY, migraine vs. other Exam documented above, pertinent findings include: Alert and oriented, GCS 15, NIH ZERO. Discussion: Patient with relatively typical slow onset generalized low-grade headache, typical to prior headaches other than slightly longer induration. Multiple diagnoses considered as noted above however no red flag findings readily apparent. We did discuss that postprocedure he is at higher risk and I had initially ordered some labs and a head CT but patient was very hesitant given how well he feels. We had lengthy discussion at the bedside and shared decision-making between he, myself in his . We discussed risks and benefits and agree that there are diagnoses that are potentially significant which could include intracranial hemorrhage among others, but the risk is very low. He understands and accepts this risk. We did not pursue AMA paperwork. He lives close and both he and undestand and agree with return precautions Disposition: see below, along with detailed discharge instructions that have been reviewed with patient as well as indications for ED re-evaluation and additional outpatient follow up Discharge Plan Departure Patient Disposition: Home Clinical Impression: Headache Instructions: DI for Headache Activity Restrictions/Additional Instructions: *You have been diagnosed with [ Headache ] *What to do: *Take medications as directed *Follow up with your primary care provider in 2-3 days, call for an appointment. Let them know you were seen in the Emergency Department and that we ask that you be seen in follow up *Return to ER if you should have any new, worsening or concerning symptoms, such as [ fever > 101F, neck pain or stiffness, vomiting, confusion, seizure, focal weakness, vision change, speech deficit or other concerning symptoms ] Prescriptions: No Action zolpidem 5 mg tablet 2.5 mg PO BEDTIME PRN vitamin B complex [B Complex-Vitamin B12] tablet 1 tab PO DAILY cholecalciferol (vitamin D3) 1,000 unit capsule 1,000 unit PO DAILY biotin 1 mg capsule 1 mg PO DAILY Referrals: Melania Interiano MD [Primary Care Provider] - Stand Alone Forms: Patient Portal/API
== END 2023-04-14 18:48 | disposition home or self-care (01) ==
PROVIDERS: Emergency Provider Emergency Medicine; Family Provider Family Medicine; PCP Family Medicine
DX: R51.9 Headache, unspecified (principal)
CPT/HCPCS: 99281; 99282

== ENCOUNTER 2023-04-15 12:40 | Emergency (ER) | payer MEDICARE, OTHER, SELFPAY ==
[2023-04-15 12:59] VITALS: BP 130/76; PULSE 64; RESP 16; TEMP 36.9; O2SAT 97; BMI 23.9
[2023-04-15] MEDS: ONDANSETRON 4 MG/2 ML INJ IV (14:10)
[2023-04-15] MEDS: SODIUM CHLORIDE 0.9% 1,000 ML 1000 ML IV (14:10)
[2023-04-15] MEDS: KETOROLAC 30 MG/ML VIAL 15 MG IV (14:10)
[2023-04-15 14:12] LABS: Add Manual Diff / Slide Review NO; Basophils Absolute Auto 0 /uL (0-100); Basophils Percent Auto 0.4 % (0-2); Eosinophils Absolute Auto 200 /uL (0-450); Eosinophils Percent Auto 2.4 % (2-4); Hemoglobin 13.2 g/dL (13.5-17.5); Lymphocytes Absolute Auto 1300 /uL (1100-4500); Lymphocytes Percent Auto 15.3 % (25-40); Mean Corpuscular Hemoglobin 32.8 PG (26-34); Mean Corpuscular Volume 89.8 fL (80-100); Monocytes Absolute Auto 800 /uL (0-900); Monocytes Percent Auto 8.9 % (3-14); Neutrophils Absolute Auto 6300 /uL (1500-7000); Platelet Count 194 X10^3/uL (150-400); Red Blood Cell Count 4.01 X10^6/uL (4.5-5.9); Red Cell Distribution Width 12.2 % (11.6-14.8); White Blood Cell Count 8.7 X10^3/uL (4.5-11.0)
[2023-04-15 14:44] LABS: Alanine Aminotransferase 25 IU/L (<50); Aspartate Aminotransferase 31 IU/L (17-59); Bilirubin Total 1.1 mg/dL (0.2-1.3); Blood Urea Nitrogen 11 mg/dL (9-20); Calcium 8.8 mg/dL (8.4-10.2); Carbon Dioxide 26 mmol/L (22-32); Chloride 102 mmol/L (98-107); Estimated Glomerular Filt Rate > 60 mL/min (>60); Glucose 104 mg/dL (80-110); HEMOLYSIS < 15 (0-50); Potassium 4.2 mmol/L (3.4-5.1); Sodium 133 mmol/L (137-145)
[2023-04-15 14:45] LABS: Albumin 3.8 g/dL (3.5-5.0); Albumin Globulin Ratio 1.4 (1.0-2.8); Alkaline Phosphatase 53 U/L (38-126); Globulin 2.8 g/dL (1.7-4.1); Mean Corpuscular HGB Conc 36.5 % (30-36); Total Protein 6.6 g/dL (6.3-8.2)
--- NOTE | 2023-04-15 16:09 | DI.CT.S_ITS ---
PROCEDURE: CT HEAD/BRAIN WO CON INDICATIONS: headache TECHNIQUE: Noncontrast 4.5 mm thick angled axial sections acquired from the foramen magnum to the vertex, with coronal and sagittal reformats. For radiation dose reduction, the following was used: automated exposure control, adjustment of mA and/or kV according to patient size. COMPARISON: None. FINDINGS: Image quality: Excellent. CSF spaces: Basal cisterns are patent. No extra-axial fluid collections. Ventricles are normal in size and shape. Brain: No midline shift. No intracranial masses or hemorrhage. Mendiola-white matter interface is normal. Left anterior temporal lobe arachnoid cyst. Skull and face: Calvarium and visualized facial bones are intact, without suspicious lesions. Sinuses: Right polypoid maxillary sinus disease with mixed densities suggesting possible solid or fungal etiologies. IMPRESSION: No acute intracranial findings. Right maxillary sinus disease. Left temporal arachnoid cyst. Dictated by: Kartik Anderson M.D. on 04/15/2023 at 15:26 Approved by: Kartik Anderson M.D. on 04/15/2023 at 15:30
[2023-04-15] MEDS: HYDROMORPHONE 0.5 MG INJ IV (16:14)
--- NOTE | 2023-04-15 16:14 | PC.NURSE ---
Sitting in rm 3 recliner with at side. pt reports continued headache after 1L NS and tordol. AAOx3, ambulatory. Reports minimal change. Dr Oneill made aware and verbal order for head CT and 0.5mg dilaudid. Given. Pt to CT at this time.
--- NOTE | 2023-04-15 16:16 | ED_ITS ---
HPI - Headache General Chief Complaint: Headache Stated Complaint: cath placed, headache won't go away Time Seen by Provider: 04/15/23 13:48 History of Present Illness HPI Narrative: Patient 67-year-old male history of coronary artery disease without stents presents today with headache. He was seen evaluated here yesterday 2 days ago through the right radial he was seen evaluated here yesterday for a lingering headache. He was started on Imdur and a statin. He did come in with headache today but has been given Toradol Zofran and now Dilaudid. He reports that his headache has now improved. He is no numbness tingling or weakness nausea or vomiting. He denies any fever. He previously was not taking any medications. He admits to drinking beer regularly and has not had bear for the last 5 days but denies any tremors or hallucinations. Related Data Home Medications Medication Instructions Recorded Confirmed biotin 1 mg capsule 1 mg PO DAILY 01/17/19 03/27/23 cholecalciferol (vitamin D3) 25 1,000 unit PO DAILY 01/17/19 03/27/23 mcg (1,000 unit) capsule vitamin B complex (B 1 tab PO DAILY 01/17/19 03/27/23 Complex-Vitamin B12 tablet) zolpidem 5 mg tablet 2.5 mg PO BEDTIME PRN 03/01/23 03/27/23 Allergies Allergy/AdvReac Type Severity Reaction Status Date / Time No Known Drug Allergies Allergy Verified 04/14/23 17:53 Review of Systems Review of Systems ROS Unobtainable: All systems reviewed & are unremarkable except as noted in HPI and below Patient History Medical History No significant past medical history Surgical History Anesthesia History of colonoscopy Mucous cyst of toe No significant past surgical history Family History Father Myocardial infarct Mother Cancer Social History marital status: unmarried,living together household members: significant other lives independently: Yes housing: other occupational status: previously employed Smoking Status: Never smoker second hand exposure: No alcohol intake: current substance use type: does not use Smoking Status: Never smoker alcohol intake frequency: 3 or more drinks per day Alcohol type: beer Substance Use Type: does not use Exam Initial Vital Signs Initial Vital Signs: Vital Signs Temperature 98.4 F 04/15/23 12:59 Pulse Rate 64 04/15/23 12:59 Respiratory Rate 16 04/15/23 12:59 Blood Pressure 130/76 04/15/23 12:59 Pulse Oximetry 97 04/15/23 12:59 Oxygen Delivery Method Room Air 04/15/23 12:59 GENERAL: Alert pleasant 67-year-old male and in no acute distress. HEENT: Head atraumatic,EOMI, pupils reactive, face symmetric, moist mucous membranes CARDIOVASCULAR: Regular rate and rhythm without murmurs, rubs or gallops. RESPIRATORY: Breath sounds equal bilaterally, no wheezes rales or rhonchi. ABDOMEN: Soft, nontender. Normoactive bowel sounds all 4 quadrants. No guard ing or rebound. EXTREMITIES: Normal range of motion, no clubbing or edema. Neurovascularly intact NEUROLOGICAL: Alert and oriented x4. Cranial nerves intact SKIN: Warm, dry, no laceration, no petechiae, no rashes or lesions. Course Orders Ordered: ED Orders 04/15/23 14:00 CBC Auto Diff [Complete Blood Count AUTO DIFF] Stat CMP [Comprehensive Metabolic Panel] Stat 04/15/23 14:07 EKG-12 Lead Stat 04/15/23 16:09 CT head/brain wo con Stat Discontinued Medications Hydromorphone HCl (Hydromorphone 0.5 Mg Inj) 0.5 mg IV NOW ONE Stop: 04/15/23 16:11 Last Admin: 04/15/23 16:14 Dose: 0.5 mg Documented By: NEFTALY Sodium Chloride (Normal Saline 0.9%) 1,000 mls @ 1,000 mls/hr IV BOLUS ONE Stop: 04/15/23 14:47 Last Infusion: 04/15/23 15:28 Dose: 0 mls/hr Documented By: Admin: 04/15/23 14:10 Dose: 1,000 mls/hr Documented By: NEFTALY Ketorolac Tromethamine (Ketorolac 30 Mg/Ml Vial) 15 mg IV NOW ONE Stop: 04/15/23 13:49 Last Admin: 04/15/23 14:10 Dose: 15 mg Documented By: NEFTALY Ondansetron HCl (Ondansetron 4 Mg/2 Ml Inj) 4 mg IV NOW ONE Stop: 04/15/23 13:49 Last Admin: 04/15/23 14:10 Dose: 4 mg Documented By: NEFTALY Vital Signs Vital signs: Vital Signs - 8 hr 04/15/23 12:59 04/15/23 16:53 04/15/23 18:09 Temperature 98.4 F Pulse Rate 64 56 L 60 Respiratory Rate 16 16 16 Blood Pressure 130/76 154/82 H 141/75 H Pulse Oximetry 97 98 96 Oxygen Delivery Method Room Air Room Air Room Air MDM - Headache Lab Data 04/15/23 14:00 04/15/23 14:00 Labs: Lab Results 04/15/23 04/15/23 Range/Units 14:00 14:00 WBC 8.7 (4.5-11.0) X10^3/uL RBC 4.01 L (4.5-5.9) X10^6/uL Hgb 13.2 L (13.5-17.5) g/dL Hct 36.0 L (41-53) % MCV 89.8 (80-100) fL MCH 32.8 (26-34) PG MCHC 36.5 H (30-36) % RDW 12.2 (11.6-14.8) % Plt Count 194 (150-400) X10^3/uL Neut % (Auto) 73.0 (50-75) % Lymph % (Auto) 15.3 L (25-40) % Payette % (Auto) 8.9 (3-14) % Eos % (Auto) 2.4 (2-4) % Baso % (Auto) 0.4 (0-2) % Neut # (Auto) 6300 (3482-5765) /uL Lymph # (Auto) 1300 (0146-6294) /uL Payette # (Auto) 800 (0-900) /uL Eos # (Auto) 200 (0-450) /uL Baso # (Auto) 0 (0-100) /uL Sodium 133 L (137-145) mmol/L Potassium 4.2 (3.4-5.1) mmol/L Chloride 102 (98-107) mmol/L Carbon Dioxide 26 (22-32) mmol/L BUN 11 (9-20) mg/dL Creatinine 0.92 (0.66-1.25) mg/dL Estimated GFR > 60 (>60) mL/min BUN/Creatinine Ratio 12.0 (6-22) Glucose 104 (80-110) mg/dL Calcium 8.8 (8.4-10.2) mg/dL Total Bilirubin 1.1 (0.2-1.3) mg/dL AST 31 (17-59) IU/L ALT 25 (<50) IU/L Alkaline Phosphatase 53 (38-126) U/L Total Protein 6.6 (6.3-8.2) g/dL Albumin 3.8 (3.5-5.0) g/dL Globulin 2.8 (1.7-4.1) g/dL Albumin/Globulin Ratio 1.4 (1.0-2.8) Imaging Data CT scan - head: Radiologist's Impression: PROCEDURE:? CT HEAD/BRAIN WO CON ? INDICATIONS:? headache ? TECHNIQUE:? Noncontrast 4.5 mm thick angled axial sections acquired from the foramen magnum to the vertex, with coronal and sagittal reformats.? For radiation dose reduction, the following was used:? automated exposure control, adjustment of mA and/or kV according to patient size.? ? COMPARISON:? None. ? FINDINGS:? Image quality:? Excellent.? ? CSF spaces:? Basal cisterns are patent.? No extra-axial fluid collections.? Ventricles are normal in size and shape.? ? Brain:? No midline shift.? No intracranial masses or hemorrhage.? Mendiola-white matter interface is normal.? Left anterior temporal lobe arachnoid cyst. ? Skull and face:? Calvarium and visualized facial bones are intact, without suspicious lesions.? ? Sinuses:? Right polypoid maxillary sinus disease with mixed densities suggesting possible solid or fungal etiologies.? ? IMPRESSION:? No acute intracranial findings. Right maxillary sinus disease. Left temporal arachnoid cyst.? ? Dictated by: Kartik Anderson M.D. on 04/15/2023 at 15:26 ? ? Approved by: Kartik Anderson M.D. on 04/15/2023 at 15:30 ? ECG Data Interpretation: Sinus rhythm rate 53 VA interval 150 QRS [address] changes MDM Narrative Medical decision making narrative: Patient 67-year-old male presents today with lingering headache after heart catheterization being started on multiple cardiac medications. He has no focal deficits no evidence of fever or infection. He is feeling much better after medication. I suspect that his lingering headache maybe from his Imdur and new medications possibly anesthesia as well. We had a long conversation about lifestyle changes and to continue his meds. Also recommend following up and talking to Cardiology. Sounds though he is only taking half and Imdur now and is supposed to titrate up. I do think his headache is probably secondary to medication Discharge Plan Departure Patient Disposition: Home Clinical Impression: Headache Instructions: DI for Headache Activity Restrictions/Additional Instructions: *You have been diagnosed with a headache *What to do: At this time I think similar your headache is probably due to your Imdur and all of your new medications. 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 Also recommend plant based as often as possible diet and lifestyle changes will also help. *Continue to take medications as directed *Follow up with your primary care provider in 2-3 days or call [phone] *Return to ER if you should have worsening headache numbness tingling weakness chest pain shortness of breath or any new, worsening or concerning symptoms Prescriptions: No Action zolpidem 5 mg tablet 2.5 mg PO BEDTIME PRN vitamin B complex [B Complex-Vitamin B12] tablet 1 tab PO DAILY cholecalciferol (vitamin D3) 1,000 unit capsule 1,000 unit PO DAILY biotin 1 mg capsule 1 mg PO DAILY Referrals: Melania Interiano MD [Primary Care Provider] - Zina Dinh MD [Physician] - Stand Alone Forms: Patient Portal/API
[2023-04-15 16:53] VITALS: BP 154/82; PULSE 56; RESP 16; O2SAT 98
[2023-04-15 18:09] VITALS: BP 141/75; PULSE 60; RESP 16; O2SAT 96
== END 2023-04-15 18:11 | disposition home or self-care (01) ==
PROVIDERS: Emergency Provider Emergency Medicine; Family Provider Family Medicine; PCP Family Medicine
DX: R51.9 Headache, unspecified (principal); R07.9 Chest pain, unspecified
CPT/HCPCS: 36415; 70450; 80053; 85025; 93005; 96361; 96374; 96375; 99284; J1170; J1885; J2405

== ENCOUNTER → 2023-12-20 09:12 | Outpatient (CLI) | payer MEDICARE, OTHER, SELFPAY ==
[2023-12-20 11:11] LABS: Cholesterol 151 mg/dL (140-199); Glucose 105 mg/dL (80-110); HDL Cholesterol 77 mg/dL (40-60); LDL Cholesterol Calculated 62 mg/dL (<100); Triglycerides 59 mg/dL (35-150)
== END ==
PROVIDERS: Family Provider Family Medicine; PCP Family Medicine; Referring Provider Family Medicine; Visit Provider Family Medicine
DX: E78.5 Hyperlipidemia, unspecified (principal); I10 Essential (primary) hypertension; R73.9 Hyperglycemia, unspecified
CPT/HCPCS: 36415; 80061; 82947

== ENCOUNTER → 2023-12-22 13:16 | Outpatient (CLI) | payer MEDICARE, OTHER, SELFPAY ==
--- NOTE | 2023-12-22 13:19 | DI.MRI.S_ITS ---
PROCEDURE: MR HEAD/BRAIN WO CON INDICATIONS: headaches TECHNIQUE: Noncontrast axial T1 spin echo, axial T2 fast spin echo, sagittal and axial FLAIR, coronal T2 fast spin echo, axial gradient echo, axial diffusion and ADC through the brain. COMPARISON: None. FINDINGS: Image quality: Excellent. CSF Spaces: Basal cisterns are patent. No extra-axial fluid collections. Ventricles are normal in size and shape. Brain: No intracranial solid masses or hemorrhage. Mendiola/white matter interface is normal. Brainstem appears normal. Diffusion-weighted sequence is unremarkable without evidence of acute infarct. Normal intravascular flow voids are present. 3.4 x 3.3 x 3.7 cm arachnoid cyst noted in the left middle cranial fossa with left temporal lobe hypoplasia. Age-appropriate atrophy and multifocal white matter chronic ischemic change noted. Skull and face: Calvarium has normal marrow signal. Orbits appear normal. Sinuses: 2.4 cm right maxillary sinus retention cyst. Small retention cysts noted on the left as well. IMPRESSION: Left middle cranial fossa extra-axial arachnoid cyst associated with left temporal hypoplasia. No acute infarct, hemorrhage or solid mass lesion Approved by: Juan David Winter M.D. on 12/24/2023 at 14:06
== END ==
LOC: MRI 13:17
PROVIDERS: Family Provider Family Medicine; PCP Family Medicine; Referring Provider Family Medicine; Visit Provider Family Medicine
DX: G50.0 Trigeminal neuralgia (principal); G93.0 Cerebral cysts; J34.1 Cyst and mucocele of nose and nasal sinus
CPT/HCPCS: 70551